=== PATIENT | male | born 1960 | race Caucasian/White ===

== ENCOUNTER 2017-04-16 05:05 | Inpatient (IN) | payer OTHER ==
[2017-03-26 08:31] VITALS: BMI 32.0
--- NOTE | 2017-03-26 08:56 | PAT Medication Instructions ---
Service Date Mar 26, 2017. Current Home Medication List Aspirin (Aspirin Ec), 81 MG PO QAM Multiple Vitamins W/ Minerals (Multi For Him 50+), 1 TAB PO QAM Valsartan (Diovan), 80 MG PO QAM [Eye Drop], 1 DROP OP PRN Medication Instructions For Your Scheduled Surgery - Hold the following medications the morning of surgery: Valsartan (Diovan), 80 MG PO QAM Multiple Vitamins W/ Minerals (Multi For Him 50+), 1 TAB PO QAM - Take the following medications the morning of surgery with a sip of water: Aspirin (Aspirin Ec), 81 MG PO QAM [Eye Drop], 1 DROP OP PRN (if needed) - Take the following medications as scheduled the night before surgery: [Eye Drop], 1 DROP OP PRN (if needed) If you have any questions please call us at [phone] or [phone] or [phone]
--- NOTE | 2017-03-26 09:35 | DIAGNOSTIC IMAGING REPORT ---
CHEST 2 VIEWS ROUTINE HISTORY: Preop. COMPARISON: None. FINDINGS: The lungs are clear. Cardiac silhouette is normal in size. No pleural effusions. No pneumothorax. IMPRESSION: No acute process. Electronically signed by: Juan Francisco Hawley M.D. 03/26/2017 9:33 AM Dictated Date/Time: 03/26/2017 9:32 AM
[2017-03-26 09:55] LABS: BASO % 0.2 %; BASO ABS # 0.01 K/uL (0-0.2); EOS % 2.6 %; EOS ABS # 0.13 K/uL (0-0.5); HEMATOCRIT 46.2 % (42-52); HEMOGLOBIN 16.2 g/dL (14.0-18.0); IG# 0.01 K/uL (0.00-0.02); LYMPH ABS # 1.78 K/uL (1.2-3.4); MEAN CELL VOLUME 91.3 fL (80-100); MEAN CORPUSCULAR HGB CONC 35.1 g/dl (32-36); MEAN PLATELET VOLUME 10.3 fL (7.4-10.4); MONO % 6.3 %; MONO ABS # 0.32 K/uL (0.11-0.59); NEUT % 55.7 %; NEUT ABS # 2.84 K/uL (1.4-6.5); PLATELET COUNT 179 K/uL (130-400); RED CELL DISTRIBUTION WIDTH CV 12.8 % (11.5-14.5); RED CELL DISTRIBUTION WIDTH SD 42.6 fL (36.4-46.3); WHITE BLOOD COUNT 5.09 K/uL (4.8-10.8)
[2017-03-26 10:01] LABS: CREATININE 0.9 mg/dl (0.60-1.40); POTASSIUM 4.4 mmol/L (3.5-5.1)
[2017-03-26 10:10] LABS: PTT PATIENT 29.4 SECONDS (21.0-31.0)
--- NOTE | 2017-04-11 22:38 | HISTORY & PHYSICAL EXAMINATION ---
DATE OF ADMISSION: 04/16/2017 CHIEF COMPLAINT: Left hip pain. 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 He recently moved to this area but he has fairly long history of left hip pain and discomfort that gradually has gotten worse over the years. He developed increased stiffness. 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 He describes groin pain, pain down to his knee. He has difficulty putting his shoes and socks on. He has difficulty going on any significant walks. He would like to have his left hip replaced. PAST MEDICAL HISTORY: Significant for hypertension. PAST SURGICAL HISTORY: Include: 1. Appendectomy. 2. Ankle surgery. ALLERGIES: None. CURRENT MEDICATIONS: 1. Valsartan. 2. Low dose aspirin. 3. Multivitamin. SOCIAL HISTORY: A 56-year-old male. He is . He exercises regularly but limited by his hip pain. 1-2 drinks per week. FAMILY HISTORY: Significant for heart disease and diabetes. REVIEW OF SYSTEMS: Negative for diabetes, neurologic problems, vascular problems or bleeding disorders. No chest pain or shortness of breath. No history of DVT or PE. PHYSICAL EXAMINATION: GENERAL: Reveals a healthy, pleasant, middle-aged male. He looks to be in good health. HEENT: Benign. NECK: Supple with no lymphadenopathy. LUNGS: Clear to auscultation. HEART: Regular rate and rhythm. ABDOMEN: Soft, nontender, nondistended. EXTREMITIES: Grossly neurovascularly intact except as follows: Examination of the left hip and leg reveals the patient walks with a bit of a limp. Leg lengths clinically appear pretty equal. He has a very stiff hip with internal rotation to neutral at best with pain with hip internal rotation. Negative straight leg raise. He is neurologically intact. X-RAYS: X-rays of the left hip were reviewed. It shows advanced left hip DJD. He has near complete loss of his joint space. He has pretty good medial osteophytes around the femoral head and acetabulum. ASSESSMENT: A 56-year-old male with advanced left hip degenerative joint disease. He has failed conservative treatment, it is limiting his lifestyle and he would like to have his left hip replaced. PLAN: We will take him to the operating room and do a left total hip replacement. The risks and benefits of this procedure were explained to the patient including but not limited to DVT, PE, , infection, neurological injury, vascular injury, bleeding problems, pain, limited range of motion, stiffness, failure to relieve his symptoms, incomplete relief of his symptoms, need for further surgery in the future, fracture, leg length inequality, nerve palsy, dislocation, etc. He does have quite a bit of offset and we will do our best to recreate this but this is at increased risk of instability. We may need to lengthen his leg a little bit as well. He is aware of these issues. As far as discharge plans, he is planning to be discharged to home using [facility] home health program. He knows to hold his NSAIDs 2 weeks preop.
[2017-04-16] VITALS (19 sets, daily range): BP systolic 123–183; BP diastolic 77–118; PULSE 18–73; TEMP 36.7–37.5; O2SAT 93–97; Ht 182.9 cm; Wt 106.3 kg
[~2017-04-16] VITALS: Ht 182.9 cm; Wt 106.3 kg
[~2017-04-16 05:05] MED LIST: ASPI81TA28 PO; DVN80 PO; EYE DROP OP; MULT-221 PO
[2017-04-16] MEDS ORDERED: SCOPOLAMINE 1.5 MG TDSY TD SCH (06:00)
[2017-04-16] MEDS ORDERED: ACETAMINOPHEN 500 MG TAB PO SCH (06:00)
[2017-04-16] MEDS ORDERED: FAMOTIDINE 20 MG TAB PO SCH (06:00)
[2017-04-16] MEDS ORDERED: LACTATED RINGER'S 1000ML 500 ML IV SCH (06:00)
[2017-04-16] MEDS ORDERED: TRANEXAMIC ACID INJ 1,000 MG in SYRINGE 0 ML IV SCH (06:00)
[2017-04-16] MEDS ORDERED: LACTATED RINGER'S 1000ML 1,000 ML IV SCH (06:00)
[2017-04-16] MEDS ORDERED: CEFAZOLIN 2000MG IV PUSH 10 ML IV SCH (06:00)
[2017-04-16] MEDS ORDERED: LACTATED RINGER'S 1000ML IV SCH (06:00)
[2017-04-16] MEDS ORDERED: GABAPENTIN 300 MG CAP PO SCH (06:00)
[2017-04-16] MEDS ORDERED: METOCLOPRAMIDE HCL 10 MG TAB PO SCH (06:00)
[2017-04-16] MEDS ORDERED: BUPIVACAINE 0.5 % 5 MG/1 ML PF 10ML VIAL ONE (06:16)
[2017-04-16] MEDS ORDERED: EpINEphrine HCL INJ 1 MG/ML 5ML SYRINGE ONE (06:28)
[2017-04-16] MEDS ORDERED: BUPIVACAINE 0.5 % 5 MG/1 ML MPF 30ML VIAL ONE (06:28)
[2017-04-16] MEDS ORDERED: BACITRACIN 50000 UNIT VIAL ONE (06:28)
[2017-04-16] MEDS ORDERED: MIDAZOLAM HCL 1 MG/ML 2ML VIAL ONE ×2 (06:31→07:24)
[2017-04-16] MEDS ORDERED: FENTANYL CITRATE INJ 50 MCG/1 ML 2 ML VIAL ONE (06:31)
[2017-04-16] MEDS ORDERED: LIDOCAINE HCL 2% 2 ML VIAL (20MG/ML) ONE (06:31)
[2017-04-16] MEDS ORDERED: PROPOFOL IV EMULSION 10 MG/ML 20 ML VIAL IV ONE (06:31)
--- NOTE | 2017-04-16 06:45 | History & Physical Bridge Note ---
H&P Re-Evaluation Bridge Note: I have examined the patient, reviewed the History & Physical and in the interval since the performance of the History & Physical I have noted the following changes of clinical significance: No changes noted
[2017-04-16] MEDS ORDERED: EpHEDrine SULFATE INJ 50 MG/ML AMP ONE (07:36)
[2017-04-16] MEDS ORDERED: LACTATED RINGER'S 1000ML 500 ML IV PRN (08:34)
[2017-04-16] MEDS ORDERED: SODIUM CHLORIDE 0.9% 1000ML 1,000 ML IV PRN (08:34)
[2017-04-16] MEDS ORDERED: NALOXONE HCL INJ 0.08 MG in SYRINGE 1.8 ML IV PRN (08:34)
[2017-04-16] MEDS ORDERED: NALOXONE HCL INJ 1 MG in SODIUM CHLORIDE 0.9% 1000ML 1,000 ML IV PRN (08:34)
[2017-04-16] MEDS ORDERED: EpHEDrine SULFATE INJ 50 MG/ML AMP IV PRN ×2 (08:45→09:45)
[2017-04-16] MEDS ORDERED: NALBUPHINE HCL INJ 10 MG/ML AMP IV PRN (08:45)
[2017-04-16] MEDS ORDERED: NALOXONE HCL 0.4 MG/1 ML VIAL/CARP IV PRN (08:45)
[2017-04-16] MEDS ORDERED: MEPERIDINE HCL 25 MG/ML CARP IV PRN (08:45)
[2017-04-16] MEDS ORDERED: NO NARCOTICS OR SEDATIVES SCH (08:45)
[2017-04-16] MEDS ORDERED: MoRPHine SULFATE PF 1 MG/ML 10 ML AMP/VIAL EPI PRN (08:45)
[2017-04-16] MEDS ORDERED: DiphenhydrAMINE HCL 50 MG/ML VIAL IV PRN ×2 (08:45→09:00)
[2017-04-16] MEDS ORDERED: ONDANSETRON INJ 2 MG/ML 2 ML VIAL IV PRN ×3 (08:45→09:45)
--- NOTE | 2017-04-16 08:46 | [facility] Post Operative Brief Note ---
Immediate Operative Summary Operative Date Apr 16, 2017. Pre-Operative Diagnosis Advanced Left Hip Degenerative Joint Disease Post-Operative Diagnosis Advanced Left Hip Degenerative Joint Disease Procedure(s) Performed Left Total Hip Arthroplasty Surgeon Dr. Cottrell Rim Roller Setter Surgeon(s) Kam Camejo PA-C Estimated Blood Loss 400 mL Findings Left Hip DJD Fluids (cc crystalloids) 1800 cc Specimens A: Left Femoral Head Drains None Anesthesia Spinal Complication(s) None Accompanied patient to Recovery Room where post-op note performed. Disposition Recovery Room / PACU
[2017-04-16] MEDS ORDERED: MoRPHine SULFATE 2 MG/ML CARP IV PRN (09:00)
[2017-04-16] MEDS ORDERED: TAMSULOSIN HCL 0.4 MG CAP PO PRN (09:00)
[2017-04-16] MEDS ORDERED: METOCLOPRAMIDE HCL INJ 5 MG/ML 2 ML VIAL IV PRN (09:00)
[2017-04-16] MEDS: TAPENTADOL ER 50 MG TABCR PO SCH (09:00)
[2017-04-16] MEDS ORDERED: BISACODYL 10 MG SUPP PR PRN (09:00)
[2017-04-16] MEDS ORDERED: SILVER SULFADIAZINE 1% CR 50 GM JAR EXT PRN (09:00)
[2017-04-16] MEDS ORDERED: MULTIVITAMIN TAB PO SCH (09:00)
[2017-04-16] MEDS ORDERED: ZOLPIDEM TARTRATE 5 MG TAB PO PRN (09:00)
[2017-04-16] MEDS: VALSARTAN 80 MG TAB PO SCH (09:00)
[2017-04-16] MEDS ORDERED: ALUMINUM/MAGNESIUM/SIMETH (MAALOX MAX) 30 ML UDC PO PRN (09:00)
[2017-04-16] MEDS ORDERED: MAGNESIUM HYDROXIDE SUSP 30 ML UDC PO PRN (09:00)
--- NOTE | 2017-04-16 09:18 | DIAGNOSTIC IMAGING REPORT ---
L PELVIS/UNILATERAL HIP 1 VIEW CLINICAL HISTORY: Left hip degenerative joint disease. Arthroplasty. COMPARISON: Pelvis and left hip radiographs November 05, 2016. FINDINGS: Alignment of the total left hip arthroplasty is anatomic. There is no fracture or unexpected radiopaque foreign body. Skin obinna are present. There is an acetabular screw. IMPRESSION: Expected findings following total left hip arthroplasty. Electronically signed by: Ryan Calderon M.D. 04/16/2017 9:17 AM Dictated Date/Time: 04/16/2017 9:16 AM
--- NOTE | 2017-04-16 09:35 | Anesthesiology Progress Note ---
Anesthesia Post Op Note Date & Time Apr 16, 2017 at 09:35 Vital Signs Pain Intensity: 0 Vital Signs Past 12 Hours Date Time Temp Pulse Resp B/P (MAP) Pulse Ox O2 Delivery O2 Flow Rate FiO2 04/16/17 09:31 125/75 04/16/17 09:27 75 16 95 04/16/17 09:27 75 16 04/16/17 09:26 125/76 04/16/17 09:22 75 15 04/16/17 09:22 76 15 91 04/16/17 09:21 132/78 04/16/17 09:19 36.9 04/16/17 09:17 75 16 96 04/16/17 09:17 75 16 04/16/17 09:16 138/75 04/16/17 09:15 72 16 95 04/16/17 09:15 71 16 04/16/17 09:11 134/81 04/16/17 09:10 71 16 04/16/17 09:10 71 16 96 04/16/17 09:07 130/79 04/16/17 09:05 70 19 100 04/16/17 09:05 70 19 04/16/17 09:04 73 16 100 04/16/17 09:04 72 16 04/16/17 09:01 144/86 04/16/17 08:59 73 17 04/16/17 08:59 76 17 98 04/16/17 08:56 143/84 04/16/17 08:54 69 15 04/16/17 08:54 70 15 99 04/16/17 08:51 119/80 04/16/17 08:49 68 15 04/16/17 08:49 70 15 98 04/16/17 08:46 153/92 04/16/17 08:45 135/92 04/16/17 08:44 36.5 64 16 135/62 97 Oxymask 10 04/16/17 05:34 36.7 18 18 183/118 95 Room Air Notes Mental Status: alert / awake / arousable, participated in evaluation Pt Amnestic to Procedure: Yes Nausea / Vomiting: adequately controlled Pain: adequately controlled Airway Patency, RR, SpO2: stable & adequate BP & HR: stable & adequate Hydration State: stable & adequate Neuraxial Anesthesia: was administered, sensory block is resolving Anesthetic Complications: no major complications apparent
--- NOTE | 2017-04-16 09:42 | OPERATIVE REPORT ---
DATE OF OPERATION: 04/16/2017 SURGEON: Dr. Oscar Cottrell. ENERGY AUDIT ADVISOR: ZULEIKA Adames PREOPERATIVE DIAGNOSIS: Left hip degenerative joint disease. POSTOPERATIVE DIAGNOSIS: Same. PROCEDURE PERFORMED: Left uncemented ceramic on highly cross-linked polyethylene total hip arthroplasty. COMPLICATIONS: None. ESTIMATED BLOOD LOSS: 400 mL. FLUID REPLACEMENT: 1800 mL crystalloid fluid replacement. ANESTHESIA: Spinal. DRAINS: None. SPECIMENS: Left femoral head sent for pathology. OPERATIVE INDICATIONS: The patient is a 56-year-old gentleman, who has had a long history of left hip pain and discomfort, gradually gotten worse over the past several years. He is a very active gentleman and had to become less active. He has been unable to play tennis, which is a recreational activity that he enjoys. He has difficulty putting his shoes and socks on. He has become stiff. X-rays show progressive hip arthritis. The patient elected to proceed with surgical treatment. OPERATIVE FINDINGS: Operative findings revealed advanced left hip DJD. He had a lot of femoral head offset. He had large osteophytes particularly at the anterior aspect of the acetabulum. He had a moderate sized joint effusion. He had grade 4 changes of the femoral head and acetabulum. OPERATIVE IMPLANTS: Operative implants consisted of: 1. A Biomet G7 size 56-mm acetabular shell. 2. A 6.5 cancellous acetabular screws, 1 at 35 mm length and 1 at 25 mm in length. 3. An apex hole eliminator. 4. Highly cross-linked polyethylene liner with a 56 mm outer diameter and 36 mm inner diameter with villa placed inferior and posterior. 5. A DePuy size 13.5 large stature high offset femoral stem. 6. A +1.5/36 mm ceramic articular ball. OPERATIVE PROCEDURE: The patient was taken to the operating room, identified and placed on the operating table in the supine position. All contact areas were appropriately padded. IV antibiotics were provided by anesthesia team. A spinal anesthetic had been implemented in the holding area. Lira catheter was placed in sterile fashion. The patient was then placed in the right lateral decubitus position. An axillary roll was placed. Stulberg hip positioner was used for positioning. Left hip and leg were then prepped and draped in the usual sterile fashion. The posterolateral approach to the left hip was then performed through a curvilinear incision centered over the greater trochanter. Sharp dissection was carried out through the subcutaneous tissue down to the level of the IT band and gluteal fascia. The IT band and gluteal fascia were incised longitudinally in line with skin incision. The underlying greater trochanteric bursa was excised. The piriformis and external rotators were tagged and taken off the posterior aspect of the femur. Great care was taken throughout the procedure to protect the sciatic nerve at all times. A posterior capsulotomy was then performed leaving a large flap for later repair. Hip was internally rotated and dislocated. Femoral neck osteotomy cut was made with the final cut about a cm above the lesser trochanter. Femoral head was removed and sent for pathology. The femur was retracted anteriorly. Attention was then drawn to the acetabulum. The acetabular labrum was excised. The pulvinar fat was excised. Sequential reaming of the acetabulum was then performed beginning with a size 47 and progressing up to a 55. A 56-mm Biomet G7 acetabular shell was then placed in about 40 degrees of lateral opening and 20 degrees of anteversion. It was fixed with two 6.5 cancellous acetabular screws. A large osteophyte was taken off anterior and inferiorly. A trial liner was placed. Attention was then drawn to the femur. The proximal femur was entered with a cookie cutter followed by canal finder and lateralizing reamer. Sequential reaming of the femur was then performed beginning with a size 10 and progressing up to a 13. We got excellent chatter at 13. I really reamed up a little bit higher than it normally would as I felt I needed to get high offset stem in to accommodate his soft tissue tension. We then broached beginning with a size 10.5 small and progressing up to 13.5 large. I could not quite get this down to the calcar. It was about 4-5 mm proud, but I elected to use this due to the requirements for the offset. We then trialed the hip. With the +1.5 articular ball, the soft tissues tension seemed appropriate. Leg lengths may be just a trace bit long, but I felt we needed this to recreate the offset. I wanted to use a ceramic head as well. The hip was fully stable in full extension and external rotation and flexion to 90 degrees and internal rotation over 50 degrees. We elected to use these implants. All trial implants were removed. An apex hole eliminator was placed. Highly cross-linked polyethylene liner was placed with the villa placed inferior and posterior. A 13.5 large stature high offset femoral stem was impacted in position. This did set about 5 mm proud. We elected to accept this. We used a shorter neck in trying accommodate slight length. So, I really needed the offset to stabilize this hip. A +1.5/36 mm ceramic articular ball was placed. Hip was located once again and found to be stable. Attention was then drawn toward closing. The wound was irrigated with copious amounts of pulsatile lavage solution. I did inject locally with 60 mL of 0.5% Marcaine with epinephrine. The posterior capsule and external rotators were repaired through drill holes in the posterior trochanter with #2 Ti-Cron suture. The IT band and gluteal fascia were then closed with #1 PDS suture in running fashion. The subcutaneous tissues were then closed with 2 layers, the deep layer with #1 Vicryl sutures and subcutaneous tissues with 2-0 Dexon suture in a buried interrupted fashion. Skin was closed skin obinna. Leg was then cleaned and dried and a sterile dressing of Xeroform, 4 x 4, sterile ABD pad and foam tape was applied. The patient was then transferred to the recovery room in stable condition. The patient tolerated the procedure well with no complications. All needle and sponge counts were correct at the end of the operation. I attest to the content of the Intraoperative Record and any orders documented therein. Any exception s are noted below.
[2017-04-16] MEDS ORDERED: FENTANYL CITRATE INJ 50 MCG/1 ML 2 ML VIAL IV PRN (09:45)
[2017-04-16] MEDS ORDERED: ATROPINE SULFATE 0.1 MG/ML 5ML SYR IV PRN (09:45)
[2017-04-16] MEDS ORDERED: HYDROmorphone INJ 1 MG/ML SYR IV PRN (09:45)
[2017-04-16] MEDS: D5W AND 1/2NSS + 20MEQ KCL 1,000 ML IV SCH ×3 (10:47→23:34)
[2017-04-16] MEDS: DOCUSATE SODIUM 100 MG CAP PO SCH ×2 (11:00→21:33)
[2017-04-16] MEDS: CEROVITE ADV FORMULA TAB PO SCH (11:00)
[2017-04-16] MEDS: PANTOprazole SOD 40 MG TAB PO SCH (11:33)
[2017-04-16] MEDS: ASPIRIN 325 MG ECTAB PO SCH ×2 (11:33→21:33)
[2017-04-16] MEDS: KETOROLAC TROMETHAMINE 30 MG/ML VIAL IV. SCH ×3 (12:10→23:34)
[2017-04-16] MEDS: FERROUS GLUCONATE 324 MG TAB PO SCH ×2 (12:30→17:30)
--- NOTE | 2017-04-16 14:01 | PROGRESS NOTE ---
DATE: 04/16/2017 SUBJECTIVE: A 56-year-old gentleman postop from a left total hip replacement. He is doing well. Not having any pain yet. No chest pain or shortness of breath. Not feeling dizzy or lightheaded. OBJECTIVE: VITAL SIGNS: Temperature is 37.5. Vital signs stable. Some mild hypertension. GENERAL: Physical examination reveals a pleasant, middle-aged male. He is lying in bed and looks pretty comfortable. He is awake, alert and oriented. LUNGS: Clear to auscultation. HEART: Regular rate and rhythm. ABDOMEN: Soft, nontender, and nondistended. EXTREMITIES: Grossly neurovascularly intact except as follows: Examination of the left hip and leg reveals the leg lengths to be equal. Dressing is clean, dry and intact. Thigh is soft and supple. He can dorsiflex and plantarflex his foot appropriately. He is neurologically intact. X-RAYS: X-rays of the left hip from recovery room were reviewed. It shows left uncemented total hip arthroplasty. Components looked to be in good position. No signs of problems. ASSESSMENT: A 56-year-old gentleman postop from a left hip replacement, doing well. Hip is located. He is neurologically intact. His pain is controlled. PLAN: 1. DVT prophylaxis including thigh-high TEDs, SCDs, and aspirin twice a day. 2. PT/OT. Weightbear as tolerated. Left total hip protocol. 3. Pain control. Doing well with current pain regimen. 4. IV antibiotics x24 hours. 5. Disposition: Plan to discharge to home with some home health once adequately recovered.
[2017-04-16] MEDS: ACETAMINOPHEN 500 MG TAB PO SCH ×2 (14:22→21:33)
[2017-04-16] MEDS: CEFAZOLIN IV 2,000 MG in SYRINGE 0 ML IV SCH ×2 (14:24→22:39)
[2017-04-16] MEDS ORDERED: CEFAZOLIN IV 2,000 MG in DEXTROSE 5% 50ML 50 ML IV SCH (15:00)
[2017-04-16] MEDS ORDERED: TRANEXAMIC ACID INJ 1,000 MG in SYRINGE 0 ML IV ONE (15:00)
[2017-04-16] MEDS ORDERED: TRANEXAMIC ACID INJ 1,000 MG in SODIUM CHLORIDE 0.9% 100ML 100 ML IV SCH (15:00)
[2017-04-16] MEDS: CHECK SCOPOLAMINE PATCH PLACEMENT SCH ×2 (15:37→23:31)
[2017-04-16] MEDS: SENNA 8.6 MG TAB PO SCH (21:33)
[2017-04-17] VITALS (8 sets, daily range): BP systolic 123–135; BP diastolic 69–84; PULSE 50–82; TEMP 36.4–37.4; O2SAT 92–98
[2017-04-17] MEDS ORDERED: DC INTRASPINAL MORPHINE ONE (01:00)
[2017-04-17] MEDS: ACETAMINOPHEN 500 MG TAB PO SCH ×3 (05:55→21:50)
[2017-04-17] MEDS: KETOROLAC TROMETHAMINE 30 MG/ML VIAL IV. SCH ×4 (05:55→23:25)
[2017-04-17] MEDS: D5W AND 1/2NSS + 20MEQ KCL 1,000 ML IV SCH (05:56)
[2017-04-17 06:47] LABS: BASO % 0.1 %; BASO ABS # 0.01 K/uL (0-0.2); EOS ABS # 0.16 K/uL (0-0.5); HEMATOCRIT 37.3 % (42-52); HEMOGLOBIN 12.6 g/dL (14.0-18.0); IG# 0.02 K/uL (0.00-0.02); LYMPH % 14.3 %; LYMPH ABS # 1.17 K/uL (1.2-3.4); MEAN CELL VOLUME 92.3 fL (80-100); MEAN CORPUSCULAR HEMOGLOBIN 31.2 pg (25-34); MEAN CORPUSCULAR HGB CONC 33.8 g/dl (32-36); MEAN PLATELET VOLUME 9.9 fL (7.4-10.4); MONO % 11.6 %; MONO ABS # 0.95 K/uL (0.11-0.59); NEUT % 71.8 %; NEUT ABS # 5.88 K/uL (1.4-6.5); PLATELET COUNT 119 K/uL (130-400); RED CELL DISTRIBUTION WIDTH CV 13.3 % (11.5-14.5); RED CELL DISTRIBUTION WIDTH SD 45.1 fL (36.4-46.3); WHITE BLOOD COUNT 8.19 K/uL (4.8-10.8)
[2017-04-17 07:19] LABS: CALCIUM 7.8 mg/dl (8.5-10.1); CREATININE 0.92 mg/dl (0.60-1.40); POTASSIUM 3.6 mmol/L (3.5-5.1)
[2017-04-17] MEDS: CHECK SCOPOLAMINE PATCH PLACEMENT SCH ×3 (07:23→23:23)
[2017-04-17] MEDS: FERROUS GLUCONATE 324 MG TAB PO SCH ×3 (08:36→18:02)
[2017-04-17] MEDS: DOCUSATE SODIUM 100 MG CAP PO SCH ×2 (08:36→21:03)
[2017-04-17] MEDS: VALSARTAN 80 MG TAB PO SCH (08:36)
[2017-04-17] MEDS: CEROVITE ADV FORMULA TAB PO SCH (08:36)
[2017-04-17] MEDS: ASPIRIN 325 MG ECTAB PO SCH ×2 (08:37→21:03)
[2017-04-17] MEDS: PANTOprazole SOD 40 MG TAB PO SCH (08:37)
[2017-04-17] MEDS: TAPENTADOL ER 50 MG TABCR PO SCH ×2 (08:39→21:03)
--- NOTE | 2017-04-17 09:18 | Anesthesiology Progress Note ---
Anesthesia Post Op Note Date & Time Apr 17, 2017 at 09:18 Vital Signs Pain Intensity: 0.0 Vital Signs Past 12 Hours Date Time Temp Pulse Resp B/P (MAP) Pulse Ox O2 Delivery O2 Flow Rate FiO2 04/17/17 07:43 92 Room Air 04/17/17 07:35 37.2 68 18 132/70 (90) 92 Room Air 04/17/17 07:25 Room Air 04/17/17 03:20 37.1 72 18 123/69 (87) 94 Room Air 04/17/17 01:00 14 97 04/17/17 00:30 14 98 04/17/17 00:30 16 94 Nasal Cannula 1.0 04/16/17 23:30 14 96 04/16/17 23:15 Nasal Cannula 1.0 04/16/17 23:10 37.3 70 18 123/79 (94) 95 Nasal Cannula 1.0 04/16/17 22:30 14 93 04/16/17 21:31 16 95 Notes Mental Status: alert / awake / arousable, participated in evaluation Pt Amnestic to Procedure: Yes Nausea / Vomiting: adequately controlled Pain: adequately controlled Airway Patency, RR, SpO2: stable & adequate BP & HR: stable & adequate Hydration State: stable & adequate Neuraxial Anesthesia: sensory block resolved Anesthetic Complications: no major complications apparent
[2017-04-17] MEDS ORDERED: RXC5 PO (09:38)
[2017-04-17] MEDS ORDERED: ACET-24 PO (09:38)
[2017-04-17] MEDS ORDERED: ASPEC325 PO (09:38)
[2017-04-17] MEDS: OXYCODONE HCL IR 5 MG TAB (IMMEDIATE RELEASE) PO PRN ×2 (11:48→18:01)
--- NOTE | 2017-04-17 14:41 | PROGRESS NOTE ---
DATE: 04/17/2017 DATE: 04/17/2017 SUBJECTIVE: A 56-year-old gentleman postop day 1 from a left hip replacement. He is doing pretty well. Pain is controlled. Therapy went pretty well. No chest pain or shortness of breath. Not feeling dizzy or lightheaded. OBJECTIVE: VITAL SIGNS: Temperature 36.4. Vital signs stable. PHYSICAL EXAMINATION: GENERAL: Reveals a pleasant, middle-aged male. He is lying in bed, looks comfortable. EXTREMITIES: Examination of left hip reveals the leg to be well aligned. Leg lengths are equal. Hip is located. He can dorsiflex and plantarflex his foot appropriately. He is neurologically intact. LABORATORY DATA: Hemoglobin is 12.6. Hematocrit 37.7. Electrolytes are stable. ASSESSMENT: A 56-year-old gentleman postop day 1 from left total hip replacement, doing well. Pain is controlled. Hip is located. He is neurologically intact. PLAN: 1. DVT prophylaxis including thigh-high TEDs, SCDs, and aspirin twice a day. 2. PT/OT. Weight bear as tolerated. Left total hip protocol. 3. Pain control. Doing well with current pain regimen. 4. Disposition. Plan to discharge to home with some home health once adequately recovered.
--- NOTE | 2017-04-17 20:56 | Discharge Instructions ---
Discharge Instructions Date of Service Apr 17, 2017. Admission Reason for Admission: Left Hip Degenerative Joint Disease Discharge Discharge Diagnosis / Problem: Left Hip Replacement Discharge Goals Goal(s): Decrease discomfort, Improve function, Increase independence, Improve disease control, Therapeutic intervention Activity Recommendations Activity Limitations: per Instructions/Follow-up section (Total Hip Precautions ) Weightbearing Status: Left weightbearing . Instructions / Follow-Up Instructions / Follow-Up ACTIVITY RECOMMENDATIONS: Physical Therapy: * Aggressive physical therapy is not usually needed. You will learn to take care of yourself safely and walk. * Follow the "Hip Precautions Instructions." * In some cases, the director of social media marketing at the hospital will arrange to have a therapist come to your house for the first couple of weeks to help you learn these skills. * You need to practice on your own or with the help of a family member as needed. * When you learn these skills, most of the therapy can be done on your own. Home Exercise: * You were shown a series of exercises in the hospital. Do these exercises three to four times each day including the exercises you were shown in physical therapy. Walking: * Get up and walk several times each day. For the first four weeks, try not to stand or walk for more than one hour at a time. If you do stand or walk for more than one hour, you will not hurt anything, but your leg will likely swell. * As you feel comfortable, you may change from the walker or crutches to a cane and then to independent walking. MEDICATIONS: New Medicine: * You will likely be taking one or more of these medicines: 1. Oxycodone - Take, as directed, when you need it, every four to six hours to control your pain. 2. Aspirin - Thins your blood to lessen the chance of forming a blood clot. * The most common side effects of pain medicine and iron are nausea and constipation. If nausea or constipation is too much of a problem or if you have any questions about your new medicines or doses, call [facility] at . We will try to help you manage these issues. VERY IMPORTANT TO READ AND REVIEW" Pain: * The immediate post-operative period after hip replacement surgery is often quite painful. * You are given a prescription for pain medicine. You should take it, as directed, when you need it, especially before physical therapy and before going to bed. Pain that interferes with sleep is very common and can last several months. * You will likely need pain medicine for the first two to four weeks. It will not stop all of the pain. The pain will lessen and as you feel better, you may change to milder pain medicine such as Tylenol. * The most common side effects of pain medicine are nausea and constipation, so don't take more than you need. SPECIAL CARE INSTRUCTIONS: TEDs/Elastic Stockings: * The white elastic stockings help limit swelling and prevent blood clots from forming in your legs. The more you wear them, the more they work. * Wear them for six weeks. Prevention of Infection: * Take antibiotics one hour before any dental cleaning, dental work, urological procedure, gastrointestinal procedure or any invasive surgery in order to prevent your new joint from getting infected. * You may get the antibiotics from the doctor performing the procedure or you may call our office at before and we will call in a prescription to the pharmacy of your choice. Things to Watch For: * Drainage from the incision site that occurs more than one week after your surgery. * Severely increased leg pain or swelling. * Increased redness at the incision site. * Fever above 102 degrees Fahrenheit. * Unusual chest pain or shortness of breath. * Unusual pain or burning with urination. Call [facility] at with any of the above problems or if you have any questions about your medicines or recovery. FOLLOW UP VISIT: Make an appointment to see your doctor for approximately two weeks after surgery for a progress check and staple removal by calling the office at . Current Hospital Diet Patient's current hospital diet: Regular Diet Discharge Diet Recommended Diet: Regular Diet Procedures Procedures Performed: Left Total Hip Arthroplasty Pending Studies Studies pending at discharge: no Medical Emergencies . Who to Call and When: Medical Emergencies: If at any time you feel your situation is an emergency, please call [phone] immediately. . Non-Emergent Contact Non-Emergency issues call your: Surgeon . "Provider Documentation" section prepared by Oscar Cottrell. . VTE Core Measure Inpt VTE Proph given/why not?: Other Anticoagulation, T.E.D. Stockings, SCD's
[2017-04-17] MEDS: SENNA 8.6 MG TAB PO SCH (21:03)
[2017-04-18] MEDS: ACETAMINOPHEN 500 MG TAB PO SCH (05:54)
[2017-04-18] MEDS: KETOROLAC TROMETHAMINE 30 MG/ML VIAL IV. SCH (05:54)
[2017-04-18 06:29] VITALS: BP 156/95; PULSE 69; TEMP 37.6; O2SAT 95
--- NOTE | 2017-04-18 07:29 | PROGRESS NOTE ---
DATE: 04/18/2017 SUBJECTIVE: A 56-year-old gentleman postop day 2 from a left hip replacement. He is doing pretty well. Pain is reasonably well controlled. Doing well with the pain medicine. No chest pain or shortness of breath. Not feeling dizzy or lightheaded. OBJECTIVE: VITAL SIGNS: Temperature 37.6. Vital signs stable. GENERAL: Shows a pleasant, middle-aged male. He is lying in bed, looks pretty comfortable. EXTREMITIES: Examination of left hip reveals the dressing to be clean, dry and intact. Leg is well aligned. Hip is located. NEUROLOGIC: Intact. ASSESSMENT: A 56-year-old gentleman postop day 2 from a left hip replacement, doing pretty well. Pain is reasonably well controlled. His hip is located. He is neurologically intact. PLAN: 1. DVT prophylaxis including thigh high TEDs, SCDs, and aspirin. 2. PT, OT. Left total hip protocol. Weight bear as tolerated. 3. Pain control. Doing well with current pain regimen. 4. Disposition. Plan to discharge to home after therapy today.
[2017-04-18] MEDS: PANTOprazole SOD 40 MG TAB PO SCH (07:33)
[2017-04-18] MEDS: CHECK SCOPOLAMINE PATCH PLACEMENT SCH (07:33)
[2017-04-18] MEDS: CEROVITE ADV FORMULA TAB PO SCH (07:33)
[2017-04-18] MEDS: VALSARTAN 80 MG TAB PO SCH (07:34)
[2017-04-18] MEDS: ASPIRIN 325 MG ECTAB PO SCH (07:34)
[2017-04-18] MEDS: FERROUS GLUCONATE 324 MG TAB PO SCH (07:36)
[2017-04-18] MEDS: DOCUSATE SODIUM 100 MG CAP PO SCH (07:36)
[2017-04-18] MEDS: TAPENTADOL ER 50 MG TABCR PO SCH (07:39)
[2017-04-18] MEDS: OXYCODONE HCL IR 5 MG TAB (IMMEDIATE RELEASE) PO PRN (07:40)
[2017-04-18 07:41] VITALS: TEMP 36.8
[2017-04-18 09:15] VITALS: BP 156/95; PULSE 69; TEMP 36.8; O2SAT 95
--- NOTE | 2017-04-24 16:38 | DISCHARGE SUMMARY ---
ADMITTING PHYSICIAN AND SURGEON: Dr. Cottrell. ADMITTING DIAGNOSIS: Left hip degenerative joint disease. SURGERY PERFORMED: Left total hip arthroplasty. SECONDARY DIAGNOSIS: Hypertension. CONSULTS: None obtained. HISTORY AND PHYSICAL EXAMINATION: Well documented in the patient's chart. HOSPITAL COURSE: The patient was admitted on 04/16/2017, underwent total hip arthroplasty, tolerated the procedure well. There were no complications. He was transferred to the PACU postoperatively and later to the orthopedic floor for further care. He was given Ancef for antibiotic prophylaxis, SANDRA stockings, SCDs and aspirin for DVT prophylaxis. Hemoglobin, hematocrit and vital signs were monitored during his hospital stay and remained stable. He did not require any blood transfusions. There were no complications. By postoperative day 2, he was tolerating a regular diet, pain was controlled with oral pain medicine. He was participating in physical therapy and had no signs or symptoms of deep vein thrombosis. On postoperative day 2, he was discharged home and set up with home health services. He was given printed discharge instructions including new prescriptions for extra-strength Tylenol, aspirin 325 mg b.i.d., and oxycodone. Continue his home medications with the exception of his home dose of aspirin, which was changed. Continue physical therapy, weightbearing as tolerated, SANDRA stockings, total hip precautions. Follow up in 10-12 days or sooner if there are any problems or concerns.
== END 2017-04-18 12:36 | disposition home health service (06) | DRG 470 ==
LOC: C.ACU 05:05 → C.3E 06:30 → ENRESERV 09:08
PROVIDERS: ADMIT Orthopaedic Surgery Sports Medicine; ATTEND Orthopaedic Surgery Sports Medicine
PROC: 0SRB04A Replacement of Left Hip Joint with Ceramic on Polyethylene Synthetic Substitute, Uncemented, Open Approach (ICD-10-PCS; principal; 2017-04-16 07:00)
DX: M16.12 Unilateral primary osteoarthritis, left hip (principal); I10 Essential (primary) hypertension